=== PATIENT | male | born 1980 ===

== ENCOUNTER 2022-05-11 01:06 | Inpatient (IN) | payer BC ==
[~2022-05-11] VITALS: Ht 185.4 cm; Wt 79.4 kg
[2022-05-11] VITALS (249 sets, daily range): BP systolic 91–110; BP diastolic 48–74; PULSE 10–112; TEMP 99–100.6; O2SAT 80–100
--- NOTE | 2022-05-11 02:00 | NUR ---
PT ARRIVED VIA EMS FROM [facility]. AWAKE, AAOX4. DENIES PAIN, SOA, OR N/V. NOTED SWELLING TO L ELBOW, BORDERS MARKED FROM PREVIOUS FACILITY, AND NEW BORDERS MARKED AT THIS TIME. RED AND WARM TO TOUCH. PT TACHYCARDIC AND SBP PER REPORT 90'S. NS STARTED AT 150ML/HR TO RFA PIV. CALL TO DR. AMOS THAT PT HAS ARRIVED, STATES OK TO START ANTIBIOTICS AND HE WILL COME IN A FEW HOURS TO DRAIN FLUID. WILL CONTINUE TO MONITOR.
[2022-05-11 02:57] LABS: INR 1.6 (0.8-3.0); PROTHROMBIN TIME 18.7 SECONDS (9.7-12.8)
--- NOTE | 2022-05-11 04:30 | NUR ---
PT NAUSEATED AT THIS TIME, VOMITED APPROXIMATELY 200ML BILE. CALL TO [facility] FOR ANTIEMETICS. ALSO NOTIFIED PROVIDER THAT SBP HAS BEEN 80-90'S, MAP REMAINS ABOVE 65. SHE STATES THAT IS FINE AND TO CALL/NOTIFY PROVIDER IF MAP DROPS BELOW 65. WILL CONTINUE TO MONITOR.
--- NOTE | 2022-05-11 05:45 | NUR ---
DR. AMOS AT BEDSIDE TO SEE PT AND DRAIN BURSITIS. FLUID SENT TO LAB PER ORDERS. DRSG APPLIED BY DR. AMOS, STATES TO LEAVE IN PLACE FOR 24 HOURS, MAY REINFORCE NEEDED FRO DRAINAGE. HE WILL BE BY THIS EVENING TO SEE PT. PT TOLERATED WELL, NO QUESTIONS OR COMPLAINTS.
--- NOTE | 2022-05-11 05:45 | NUR ---
42 yo male admitted for further care and management of sepsis [facility] secondary to skin/soft tissue infection involving the L olecranon (bursitis vs. cellulitis vs. joint involvement). ht 185.4 cm wt 80.9 kg SCr 1.37 with estimated CrCl >60 ml/min half life 12.1 hours Plan: Will give an initial loading dose of vancomycin 1750 mg x1 (21.6 mg/kg); followed by a maintenance regimen of vancomycin 1250 mg q12h to target a goal trough of 15-20 mcg/ml. Will follow patient's renal function, micro data, and vancomycin levels as indicated to assess for any necessary changes to regimen. Thank you for this dosing consult.
--- NOTE | 2022-05-11 07:00 | NUR ---
Pt resting in bed. VSS. Pt denies needs at this time. Pt has call light and phone within reach.
[2022-05-11 07:04] LABS: SYNOVIAL FL. MONONUCLEAR 10.7 % (0-75)
[2022-05-11 07:09] LABS: HEMOGLOBIN 10.7 g/dl (13.5-18.0); MEAN CELL VOLUME 95 fl (80.0-100.0); MEAN CORPUSCULAR HEMOGLOBIN 33 pg (27-31); MEAN CORPUSCULAR HGB CONC 35 g/dl (33.0-37.0); MEAN PLATELET VOLUME 11.5 fl (7.4-10.4); PLATELET COUNT 92 K/mm3 (130-400); RED BLOOD COUNT 3.26 M/mm3 (4.20-5.60); REDCELL DISTRIBUTION WIDTH-CV 12.4 % (11.5-14.5)
[2022-05-11 07:13] LABS: ALBUMIN 2.7 gm/dL (3.5-5.0); BILIRUBIN,TOTAL 1.1 mg/dL (0.2-1.2); CALCIUM 6.4 mg/dL (8.4-10.2); CREATININE, serum 0.88 mg/dL (0.72-1.25); POTASSIUM 3.3 mmol/L (3.5-4.5); TOTAL PROTEIN 4.5 gm/dL (6.2-8.1)
[2022-05-11 07:14] LABS: SYNOVIAL FLUID RBC 10000 /mm3 (0-0)
[2022-05-11 07:15] LABS: SYNOVIAL FLUID WBC 24765 /mm3 (200-600)
[2022-05-11 07:46] LABS: HEMATOCRIT 30.9 % (42.0-52.0)
[2022-05-11 08:01] LABS: SYNOVIAL FLUID APPEARANCE CLOUDY; SYNOVIAL FLUID COLOR PINK
[2022-05-11 08:16] LABS: BAND 9 % (0-10); EOSINOPHIL 1 % (0-4); LYMPHOCYTE 1 % (20.0-51.0); METAMYELOCYTE 2 % (0-0); NEUTROPHILS 87 % (42.0-75.2)
[2022-05-11 08:17] LABS: HYPOCHROMIA 1+; PLATELET ESTIMATE DECREASED (NORMAL)
--- NOTE | 2022-05-11 09:45 | NUR ---
NOTIFIED OF MAG AND POTASSIUM LEVELS. ORDERS RECEIVED.
--- NOTE | 2022-05-11 12:04 | NUR ---
SW met with patient to complete intake. Patient states that he lives with his Becky Cunningham [phone] whom he appointed as DPOA/HC during intake. Document reviewed, completed, signed and witnessed by nurse. Original copy placed in chart and copies made for patient records. Patient states that he does not use DME and is independent with ADL's. PCP is Dr. Palmer and [facility] is [facility]. Patient states that he plans to return to his home upon DC. Patient states that he has had not concerns about care since arriving. Providing that he has recieved good care. SW will continue to follow. DC plan: home
--- NOTE | 2022-05-11 20:12 | NUR ---
REPORT RECEIVED. PATIENT ALERT & ORIENTED, RESTING COMFORTABLY IN BED. DOES ENDORSE MILD LEFT ARM PAIN, BUT DENIES PRN PAIN MEDS AT THIS TIME. SAFETY MEASURES MAINTAINED. RN WILL CONTINUE TO MONITOR.
[2022-05-12] VITALS (8 sets, daily range): BP systolic 91–138; BP diastolic 57–71; PULSE 73–108; TEMP 97.8–103
[2022-05-12 03:18] LABS: HEMATOCRIT 40.3 % (42.0-52.0); MEAN CELL VOLUME 98 fl (80.0-100.0); MEAN CORPUSCULAR HEMOGLOBIN 33 pg (27-31); MEAN CORPUSCULAR HGB CONC 34 g/dl (33.0-37.0); MEAN PLATELET VOLUME 11.3 fl (7.4-10.4); PLATELET COUNT 106 K/mm3 (130-400); RED BLOOD COUNT 4.12 M/mm3 (4.20-5.60); REDCELL DISTRIBUTION WIDTH-CV 12.6 % (11.5-14.5)
[2022-05-12 03:24] LABS: HEMOGLOBIN 13.6 g/dl (13.5-18.0)
[2022-05-12 03:38] LABS: ALBUMIN 2.7 gm/dL (3.5-5.0); BILIRUBIN,TOTAL 0.9 mg/dL (0.2-1.2); CALCIUM 8.2 mg/dL (8.4-10.2); CREATININE, serum 1.35 mg/dL (0.72-1.25); POTASSIUM 4.5 mmol/L (3.5-4.5); TOTAL PROTEIN 5.6 gm/dL (6.2-8.1)
[2022-05-12 03:49] LABS: BAND 46 % (0-10); LYMPHOCYTE 1 % (20.0-51.0); METAMYELOCYTE 6 % (0-0); NEUTROPHILS 47 % (42.0-75.2)
[2022-05-12 03:51] LABS: PLATELET ESTIMATE DECREASED (NORMAL)
--- NOTE | 2022-05-12 07:00 | NUR ---
BEDSIDE REPORT RECEIVED FROM EULOGIO NUNEZ. PT ALERT AND ORIENTED THIS AM. SITTING ON EDGE OF BED. REPORTS NO PAIN AND OFFERS NO COMPLAINTS. FLUIDS RUNNING THROUGH 20G PIV IN RIGHT FA. DRESSING AND RUBIN WRAP TO LEFT ELBOW CLEAN, DRY, AND INTACT. ORTHO TO SEE PT THIS AM TO EVALUATE FOR POSSIBLE SURGERY. PT NPO AT THIS TIME DUE TO POSSIBILITY OF SURGERY.
[2022-05-12 08:09] LABS: PATHOLOGY DIFF REVIEW OK
--- NOTE | 2022-05-12 08:16 | NUR ---
DR. AMOS HERE THIS AM TO SEE PT. STATES HE BELEIVES PT WILL NOT NEED SURGERY TO CLEAN OUT INFECTION IN LEFT ELBOW. OKAY TO HAVE BREAKFAST. WOULD LIKE TO SEE PRELIMINARY CULTURE RESULTS PRIOR TO SENDING PT HOME ON PO ABX.
--- NOTE | 2022-05-12 11:48 | NUR ---
PT TRANSFERED TO ROOM 349. REPORT GIVEN TO EULOGIO GODINEZ. PT BELONGINGS TRANSFERED TO 349 WITH PATIENT. THESE BELONINGS INCLUDED; CLOTHES, TOILETRIES, BAG, AND WALLET. PT ASSISTED INTO BED. CALL LIGHT IN REACH.
--- NOTE | 2022-05-12 13:39 | NUR ---
Mirtha: unknown Situation: Dispatch Lead went to room on rounds Background: PT was resting and content Assessment: PT appreciated the visit Recommendation: seat scooper machine will follow up as needed
--- NOTE | 2022-05-12 17:04 | NUR ---
PATIENT HAD FEVER OF [address] MORENO NOTIFIED AND TYLENOL WAS GIVEN. PATIENT WAS SWABBED FOR COVID. TEST STILL PENDING.
--- NOTE | 2022-05-12 19:30 | NUR ---
PT NEGATIVE FOR COVID. INSTRUCTED PT ON COLLECTION OF STOOL SAMPLE FOR CDIFF. PT REPORT LOOSE STOOLS.
[2022-05-12 20:27] LABS: CLOSTRIDIUM DIFF A/B NEG; CLOSTRIDIUM DIFF A/B INTERP No C.diff present
--- NOTE | 2022-05-12 21:00 | NUR ---
PT NEGATIVE FOR CDIFF. HAS LEFT ARM UNWRAPPED, NOTED REDDENED AND EDEMATOUS LEFT ELBOW INTO LEFT BICEP AND SWELLING DOWN INTO LEFT HAND. ELBOW HAS WICK PRESENT, DRAINAGE SANGUINOUS ON ABD PAD. REPLACED ABD PAD AND WRAPPED WITH JASMYNE. ENCOURAGED ELEVATION OF LEFT ARM. HAS RFA IV SITE WITH FLUIDS INFUSING WITHOUT REDNESS OR SWELLING. PT EDUCATED ON NEW ANTIBIOTIC ROCEPHIN. INDEPENDENT IN ROOM.
--- NOTE | 2022-05-12 23:40 | NUR ---
PT HAS ORSD=874.5, TYLENOL 650MG PO AND IMMODIUM GIVEN AT THIS TIME.
[2022-05-13 03:49] VITALS: BP 104/67; PULSE 98; TEMP 99.6
--- NOTE | 2022-05-13 04:00 | NUR ---
T=99.4. RESTING WITH LEFT ARM ELEVATED.
[2022-05-13 07:29] VITALS: BP 101/60; PULSE 100; TEMP 99.9
[2022-05-13 08:09] LABS: HEMOGLOBIN 11.8 g/dl (13.5-18.0); MEAN CELL VOLUME 95 fl (80.0-100.0); MEAN CORPUSCULAR HEMOGLOBIN 33 pg (27-31); MEAN CORPUSCULAR HGB CONC 34 g/dl (33.0-37.0); MEAN PLATELET VOLUME 11.8 fl (7.4-10.4); PLATELET COUNT 85 K/mm3 (130-400); RED BLOOD COUNT 3.61 M/mm3 (4.20-5.60); REDCELL DISTRIBUTION WIDTH-CV 12.6 % (11.5-14.5)
[2022-05-13 08:13] LABS: HEMATOCRIT 34.4 % (42.0-52.0)
[2022-05-13 08:29] LABS: ALBUMIN 2.5 gm/dL (3.5-5.0); BILIRUBIN,TOTAL 0.5 mg/dL (0.2-1.2); CREATININE, serum 1.02 mg/dL (0.72-1.25); TOTAL PROTEIN 5.5 gm/dL (6.2-8.1)
[2022-05-13 08:50] LABS: BAND 26 % (0-10); EOSINOPHIL 3 % (0-4); LYMPHOCYTE 3 % (20.0-51.0); NEUTROPHILS 66 % (42.0-75.2)
[2022-05-13 08:53] LABS: PLATELET ESTIMATE NORMAL (NORMAL)
[2022-05-13 11:53] VITALS: BP 105/74; PULSE 90; TEMP 99.1
[2022-05-13 16:44] VITALS: BP 103/71; PULSE 88; TEMP 98.7
--- NOTE | 2022-05-13 20:10 | NUR ---
Pt. sitting up in bed. Pt. is A&OX3, assessment complete IV to rt. forearm patent, IV fluids infusing per orders. Dressing to lt. arm CDI. reddness noted up the arm to the amrpit. Redness is on the medal aspect of the arm. Pt. denies pain at this time. Temp has been low grade. Dr. fonseca. Pt. denies further needs, call light within reach.
[2022-05-13 20:30] VITALS: BP 110/74; BP 126/57; PULSE 105; PULSE 75; TEMP 98.9; TEMP 99.9
[2022-05-13 23:41] VITALS: BP 104/60; PULSE 109; TEMP 99.9
[2022-05-14 03:51] VITALS: BP 104/64; PULSE 102; TEMP 100.4
[2022-05-14 08:00] VITALS: BP 122/75; PULSE 84; TEMP 98.9
[2022-05-14 08:33] LABS: BASO # 0.1 K/mm3 (0.0-0.2); BASO % 0.6 % (0.0-2.0); EOS # 0.3 K/mm3 (0.0-0.7); EOS % 2.2 % (0.0-4.0); GRAN # 9.7 K/mm3 (1.4-6.5); GRAN % 85.3 % (42.2-75.2); HEMOGLOBIN 11.1 g/dl (13.5-18.0); LYMPH # 0.6 K/mm3 (1.2-3.4); LYMPH % 5.3 % (20.0-51.0); MEAN CELL VOLUME 94 fl (80.0-100.0); MEAN CORPUSCULAR HEMOGLOBIN 32 pg (27-31); MEAN CORPUSCULAR HGB CONC 35 g/dl (33.0-37.0); MEAN PLATELET VOLUME 12.2 fl (7.4-10.4); MONO # 0.7 K/mm3 (0.1-0.6); MONO % 6.2 % (1.7-9.3); PLATELET COUNT 99 K/mm3 (130-400); RED BLOOD COUNT 3.43 M/mm3 (4.20-5.60); REDCELL DISTRIBUTION WIDTH-CV 12.6 % (11.5-14.5)
[2022-05-14 08:34] LABS: HEMATOCRIT 32.2 % (42.0-52.0)
[2022-05-14 08:46] LABS: CREATININE, serum 0.83 mg/dL (0.72-1.25); POTASSIUM 3.7 mmol/L (3.5-4.5)
--- NOTE | 2022-05-14 09:56 | NUR ---
PT RESTING IN BED WITH AT BEDSIDE. AM MEDS GIVEN ORDERED. CHANGED ABD PAD THAT PT USES FOR DRAINAGE. CURRENTLY ARM IS UNWRAPPED. ARM IS SWOLLEN WITH ERETHEMA EXTENDING INTO UPPER ARM. QUESTIONS SOLICITED AND ANSWERED. PT DENIES FURTHER NEEDS.
--- NOTE | 2022-05-14 11:58 | NUR ---
DR. AMOS IN TO SEE PT. WICK REMOVED AND DRESSING PLACED OVER INCISION. PLAN ON PLACING RUBIN WRAP FROM FINGERS TO SHOULDER FOR COMPRESSION.
[2022-05-14 12:00] VITALS: BP 121/77; PULSE 78; TEMP 98
[2022-05-14 15:41] VITALS: BP 115/73; PULSE 85; TEMP 98.9
[2022-05-14 19:18] VITALS: BP 119/85; PULSE 71; TEMP 98.6
--- NOTE | 2022-05-14 20:40 | NUR ---
Pt. sitting up in bed. Pt. is A&OX3, assessment complete. IV to rt. forearm patent. Dressing to lt. elbow CDI. Pt. denies pain or other needs, call light within reach.
[2022-05-14 23:36] VITALS: BP 98/68; PULSE 56; TEMP 98.1
[2022-05-15 03:21] VITALS: BP 130/76; PULSE 70; TEMP 98.2
[2022-05-15 07:40] VITALS: BP 115/73; PULSE 65; TEMP 98.9
--- NOTE | 2022-05-15 11:55 | NUR ---
PT HAS SHOWERED, DRESSING IS CHANGED TO LEFT ELBOW, SCANT AMOUNT OF SEROUS DRAINAGE SEEN. INCISION SITE IS CLOSED, SOME REDNESS SEEN ET EDEMA. PT EDUCATED ON DRESSING CHANGES ET WOUND CARE.
[2022-05-15 12:00] VITALS: BP 122/95; PULSE 53; TEMP 98.1
--- NOTE | 2022-05-15 14:28 | NUR ---
DR. HSIEH HAS CONVERSED WITH PT ET PT HAS DECIDED THAT HE WILL HAVE IVs INSERTED DAILY FOR OUTPATIENT ANTIBIOTICS. PT DOES NOT WANT PICC LINE INSERTED.
--- NOTE | 2022-05-15 14:50 | NUR ---
Arrived to pt room for PICC placement and was informed by Dr Soria that patient is still debating wether he would like a PICC line placed. This RN discussed education and risks and benifits with patient. Dr Soria and patient discussed as well. PT is going to opt out of getting a PICC line placed at this time and will get a daily PIV insterted when he goes to [place] for his IV therapy. 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 PT informed if he would like to have a PICC placed at a later time for the IV abx, he can come get one placed in the [place], and [place] will contact us to set that up for him. PT agreed.
--- NOTE | 2022-05-15 14:59 | NUR ---
ROSE followup with with patient to see if he would be ok with doing his antibiotics as an outpatient through the hospital in [place]. Patient is agreeable to this. He refused his picc placement stating he would rather get an IV placed everyday. Phone call made to Emilia at [facility]. Clinical documentation and orders faxed to the nurses station. Discharge plan: Home w/op antibiotics at [facility]
[2022-05-15] MEDS ORDERED: ANTI-DIARRHEAL2 MG PO (15:28)
[2022-05-15] MEDS ORDERED: PROBIOTIC BLEN1 EACH PO (15:28)
[2022-05-15] MEDS ORDERED: CEFTRIAXON1 GM/50 M1 IV ×2 (15:29→16:00)
--- NOTE | 2022-05-15 16:20 | NUR ---
PT HAS BEEN DISCHARGED TO HOME WITH FAMILY. PT AMBULATED TO ER ENTRANCE TO MEET HIS SPOUSE, CORNELL WINTER. PT GIVEN DC INSTRUCTIONS ET EDUCATION, DEMONSTRATES UNDERSTANDING, DENIES QUESTIONS.
== END 2022-05-15 16:50 | disposition home or self-care (01) | DRG 872 ==
LOC: IMCU 01:06 → SURG 01:50 → ICU 01:50 → SURG 05-12 11:50
PROVIDERS: Nurse Practitioner Family; Orthopaedic Surgery; Physician Assistant; Student in an Organized Health Care Education/Training Program; ADMIT Family Medicine
PROC: 0M940ZX Drainage of Left Elbow Bursa and Ligament, Open Approach, Diagnostic (ICD-10-PCS; principal; 2022-05-11)
DX: A41.9 Sepsis, unspecified organism (principal); L03.114 Cellulitis of left upper limb; N17.9 Acute kidney failure, unspecified; I95.9 Hypotension, unspecified; R73.9 Hyperglycemia, unspecified; E87.6 Hypokalemia; E83.42 Hypomagnesemia; D64.9 Anemia, unspecified; Z20.822 Contact with and (suspected) exposure to COVID-19; B95.0 Streptococcus, group A, as the cause of diseases classified elsewhere; M70.22 Olecranon bursitis, left elbow; E78.5 Hyperlipidemia, unspecified; Z72.89 Other problems related to lifestyle
CPT/HCPCS: 99232-AI; 99233-AI; J0696; J2405; J2543; J3370; J3475; J7030; J7050